=== PATIENT | male | born 1975 | race Caucasian/White ===

== ENCOUNTER 2019-07-11 10:37 | Emergency (ER) | payer BC, SELFPAY ==
[2019-07-11 10:41] VITALS: BP 120/51; PULSE 118; RESP 20; TEMP 36.6; O2SAT 100
--- NOTE | 2019-07-11 12:02 | ED.LOWEXIN ---
HPI - Extremity Injury (Lower) General Chief Complaint: Extremity Injury, Lower Stated Complaint: R KNEE INJURY Time Seen by Provider: 07/11/19 10:57 Source: patient Mode of arrival: ambulatory (on crutches) Limitations: no limitations History of Present Illness HPI Narrative: This is a 44-year-old male that presents the emergency department for right knee pain x2 months. Reports he had a previous meniscal repair on this knee a couple of years ago. Reports since he has had problems with pain in the knee. Reports the pain is just worsened over the last couple of months. No known injury or trauma to the knee. He has been using his crutches at home since yesterday and icing and elevating. Denies fever, erythema or warmth of the knee. Related Data Allergies Allergy/AdvReac Type Severity Reaction Status Date / Time No Known Allergies Allergy Verified 03/03/16 11:07 Review of Systems Review of Systems: Narrative: CONSTITUTIONAL: Denies fever SKIN: Denies rash MUSCULOSKELETAL: Reports joint pain, and myalgia. NEUROLOGIC: Denies numbness All systems reviewed & are unremarkable except as noted in HPI and below PMFSH Surgical History Surgical History (Updated 07/11/19 @ 12:09 by Fabiola Molina PA-C) Hx of arthroscopic knee surgery Family History Family History (Updated 01/08/16 @ 23:21 by DOCTOR UNKNOWN) Mother Patient's mother is in good health Father Patient's father is in good health Sibling Patient's sister is in good health Patient's brother is in good health Grandparent Carcinoma of colon Social History Social History Smoking status: Current every day smoker Alcohol intake: never Exam Narrative: Exam Narrative: GENERAL: Well-appearing, well-nourished, and in no acute distress. HEAD: Normocephalic, atraumatic. EYES: EOMI. CHEST: Clear to auscultation. No respiratory distress. No wheezes rales or rhonchi HEART: Regular rate and rhythm. No murmur heard. Normal peripheral pulses. EXTREMITIES: Normal range of motion. No edema, erythema or warmth of knee. Tender to palpation of the medial joint line SKIN: Warm, dry, no rash. NEURO: No focal deficits. Alert and oriented x3. PSYCH: Normal mood and affect Course Vital Signs Vital signs: Vital Signs Temperature 97.8 F 07/11/19 10:41 Pulse Rate 118 H 07/11/19 10:41 Respiratory Rate 20 07/11/19 10:41 Blood Pressure 120/51 L 07/11/19 10:41 Pulse Oximetry 100 07/11/19 10:41 Temperature 97.8 F 07/11/19 10:41 Pulse Rate 118 H 07/11/19 10:41 Respiratory Rate 07/11/19 10:41 Blood Pressure 120/51 L 07/11/19 10:41 Pulse Oximetry 100 07/11/19 10:41 MDM - Extremity Injury (Lower) MDM Narrative Medical decision making narrative: Patient presents emergency department for right knee pain. Refused knee x-ray. Reports a history of meniscal injury for which he had repaired years ago. No new injuries to the knee. Patient was placed in a knee immobilizer and has crutches. He was instructed to ice and elevate and follow-up with his orthopedic doctor. Patient was given warnings to return to the ER Critical Care Time Critical Care Time Critical Care Time: No Discharge Plan Discharge Clinical Impression: Acute pain of right knee Patient Disposition: Home, Self-Care Condition: Stable Instructions: Knee Sprain (ED) Additional Instructions: Return to the emergency department if you experience fever, redness and swelling of your leg, or any other symptoms that are concerning to you Wear knee immobilizer and use crutches. Ice and elevate. [id number] pain medication as needed Follow-up with your orthopedic doctor Follow-up/Referrals: Siddhartha Ortega MD [Primary Care Provider] - 3 Days Time of Disposition: 12:02
[2019-07-11 12:24] VITALS: BP 119/61; PULSE 87; RESP 16; O2SAT 97
== END 2019-07-11 12:25 | disposition home or self-care (01) ==
PROVIDERS: Emergency Provider Emergency Medicine; PCP Emergency Medicine
DX: M25.561 Pain in right knee (principal); F17.200 Nicotine dependence, unspecified, uncomplicated
CPT/HCPCS: 99283

== ENCOUNTER 2020-01-25 23:11 | Inpatient (IN) | payer BC, SELFPAY ==
--- NOTE | ~2020-01-25 | CT_ITS ---
EXAMINATION: CT brain wo con DATE: 01/26/2020 00:56 INDICATION: Altered mental status. TECHNIQUE: Computed tomography (CT) of the head was performed without intravenous contrast. The mA wa s adjusted according to patient size. Iterative reconstruction technique was employed. The dose-lengt h product was 681.00 mGy-cm. COMPARISON: Head CT 02/04/2014 FINDINGS: There is no intracranial hemorrhage, acute infarction, or abnormal intracranial mass lesion . The ventricles are normal in size. There is mild mucosal thickening in the ethmoid sinuses. The orb its are normal. The mastoid air cells are normal. IMPRESSION: 1. Normal brain. Reviewed, dictated and finalized at location A. IMPRESSION: 1. Normal brain.
--- NOTE | ~2020-01-25 | XR_ITS ---
EXAMINATION: XR forearm LT 2V DATE: 01/26/2020 13:49 INDICATION: Left elbow pain. TECHNIQUE: 2 views of left forearm were obtained. COMPARISON: None. FINDINGS: Bone alignment is normal. There is a nondisplaced fracture of the tip of the uncinate proce ss of the proximal ulna. Joint spaces are normal. There is an elbow joint effusion. IMPRESSION: 1. Nondisplaced fracture of the tip of the uncinate process of proximal ulna. 2. Elbow joint effusion. Reviewed, dictated and finalized at location A.
--- NOTE | ~2020-01-25 | XR_ITS ---
EXAMINATION: XR humerus LT DATE: 01/26/2020 13:50 INDICATION: Left elbow pain. TECHNIQUE: 2 views of left humerus were obtained. COMPARISON: None. FINDINGS: Bone alignment is normal. There is a nondisplaced fracture of the tip of the uncinate proce ss of proximal ulna. There is moderate osteoarthritis of acromioclavicular joint. IMPRESSION: 1. Nondisplaced fracture of the tip of the uncinate process of proximal ulna. 2. Moderate osteoarthritis of acromioclavicular joint. Reviewed, dictated and finalized at location A.
--- NOTE | ~2020-01-25 | XR_ITS ---
EXAMINATION: XR elbow LT min 3V DATE: 01/26/2020 13:50 INDICATION: Left elbow pain. TECHNIQUE: 4 views of left elbow were obtained. COMPARISON: None. FINDINGS: Bone alignment is normal. There is a nondisplaced fracture of the tip of the uncinate proce ss of proximal ulna. Joint spaces are normal. There is an elbow joint effusion. IMPRESSION: 1. Nondisplaced fracture of the tip in the uncinate process of proximal ulna. 2. Elbow joint effusion. Reviewed, dictated and finalized at location A.
--- NOTE | ~2020-01-25 | XR_ITS ---
EXAMINATION: XR chest 1V portable DATE: 01/26/2020 00:55 INDICATION: Transient alteration of awareness. TECHNIQUE: A single frontal view of the chest was obtained. COMPARISON: None. FINDINGS: The chest demonstrates clear lungs without pneumonia, pleural effusion, or pneumothorax. Th e heart size is normal. IMPRESSION: 1. No acute cardiopulmonary disease. Reviewed, dictated and finalized at location A.
--- NOTE | 2020-01-25 23:08 | ED.AMS ---
HPI - Altered Mental Status General Chief Complaint: Altered Mental Status Stated Complaint: AMS Source: EMS Mode of arrival: EMS Limitations: altered mental status and clinical condition History of Present Illness HPI narrative: Patient is a 45-year-old male who presents for evaluation of altered mental status. Patient was apparently found wandering streets and [place], shouting, yelling, for which the police department was called, patient became quite aggressive with police and had to be restrained. Because the patient was altered, EMS was then called to the scene and the patient was transported to our facility. Patient was noted to be diaphoretic and tachycardic. He is continuing to make the same statements repeatedly saying he thinks he is going to and please do not kill me. Patient is alert and oriented to person, not to place or time. Otherwise, the patient is quite diaphoretic, not cooperating with staff to lie on the bed. Additional history cannot be obtained. Related Data Allergies Allergy/AdvReac Type Severity Reaction Status Date / Time No Known Allergies Allergy Verified 03/03/16 11:07 Review of Systems Review of Systems: ROS unobtainable: Yes unobtainable due to mental status PMFSH Surgical History Surgical History Hx of arthroscopic knee surgery Family History Family History (Updated 01/08/16 @ 23:21 by DOCTOR UNKNOWN) Mother Patient's mother is in good health Father Patient's father is in good health Sibling Patient's sister is in good health Patient's brother is in good health Grandparent Carcinoma of colon Social History Social History Smoking status: Current every day smoker Alcohol intake: never Exam Narrative: Exam Narrative: GENERAL: Awake, diaphoretic HEAD: Normocephalic, atraumatic. EYES: 4+ PERRLA and EOMI. ENT: Nares clear, no rhinorrhea or epistaxis. Mucous membranes moist. NECK: Supple. CHEST: No respiratory distress, breathing even and non labored HEART: Tachycardic rate, sinus rhythm ABDOMEN:Non distended, non tender EXTREMITIES: Normal range of motion. No edema. SKIN: Warm, dry, no rash. NEURO:No focal deficits. Alert and oriented x1, moving all extremities spontaneously Course Vital Signs Vital signs: Vital Signs Temperature 37.3 C 01/25/20 23:13 Pulse Rate 142 H 01/25/20 23:13 Respiratory Rate 16 01/25/20 23:13 Blood Pressure 140/94 H 01/25/20 23:13 Pulse Oximetry 97 01/25/20 23:13 Temperature 37.3 C 01/25/20 23:13 Pulse Rate 100 01/26/20 00:35 Respiratory Rate 18 01/26/20 00:35 Blood Pressure 110/75 01/26/20 00:35 Pulse Oximetry 93 01/26/20 00:35 MDM - Altered Mental Status MDM Narrative Medical decision making narrative: Patient presented for evaluation of agitation, altered mental status after being found by police and then transported to our facility via EMS. At the time of assessment, patient is agitated, diaphoretic, tachycardic. He had an IV placed by EMS, and because the patient was not cooperative with medical staff for evaluation, he was given IV Haldol and Ativan with improvement in his agitation. Laboratory results notable for elevated CK of 5800, consistent with rhabdomyolysis, likely secondary to the substance abuse and agitation. Pt reporting amphetamine use to nurse. Patient's tachycardia and vital signs improved following administration of IV fluids. Patient will be admitted to hospitalist service. I also ordered him IV potassium replacement. Differential Diagnosis Differential diagnosis: Likely alcoholic intoxication, altered mental status, hypoglycemia, hyponatremia, subarachnoid hemorrhage and sepsis Lab Data Attestation: I reviewed the patient's lab results. Result diagrams: 01/25/20 23:35 01/25/20 23:35 Labs: Lab Results 01/25/20 01/25/2001/10
[2020-01-25 23:13] VITALS: BP 140/94; PULSE 142; RESP 16; TEMP 37.3; O2SAT 97
--- NOTE | 2020-01-25 23:16 | ECG_ITS ---
Measurements Intervals [place] Rate: 123 P: 66 NV: 151 QRS: 127 QRSD: 86 T: 59 QT: 414 QTc: 594 Interpretive Statements SINUS TACHYCARDIA RIGHT AXIS DEVIATION LOW VOLTAGE- LIMB LEADS BASELINE WANDER- V1-V3 ABNORMAL ECG Electronically Signed On 01-26-2020 7:57:02 CDT by Karan Bautista D.O.
[2020-01-25] MEDS: HALOPERIDOL LACTATE 5 MG/ML VIAL (23:30)
[2020-01-25] MEDS: SODIUM CHLORIDE 0.9% IV 2,000 ML 999 ML IV CONT (23:38)
[2020-01-25 23:41] LABS: Alveolar/Arterial O2 Gradient 39.3 mmHg; Device ROOM AIR; Fractional Inspired Oxygen 21 %; HCO3 ABG 22.1 mEq/l (22.0-26.0); Modified Allen's Test Unable to perform; Oxygen Content ABG 16.2 %vol (16.0-22.0); Oxygen Saturation ABG 93.8 % (95.0-100.0); PCO2 ABG 35.7 mmHg (35.0-45.0); PO2 ABG 67.7 mmHg (80.0-100.0); PO2 FiO2 Ratio Arterial Blood 3.22 %; Site Drawn RIGHT RADIAL; Total Hemoglobin 13.1 g/dL (12.0-18.0)
[2020-01-25 23:46] LABS: Basophils Percent Auto 0.4 % (0.2-1.2); Eosinophils Absolute Auto 0.1 K/mm3 (0-0.3); Eosinophils Percent Auto 1.3 % (0-4.4); Hematocrit 36.2 % (42.0-52.0); Hemoglobin 12.5 g/dL (14.0-18.0); Immature Granulocyte Absolute 0.03 K/mm3 (0.00-0.031); Immature Granulocyte Percent A 0.3 % (0-0.5); Lymphocytes Absolute Auto 1.96 K/mm3 (0.9-3.2); Lymphocytes Percent Auto 20.9 % (18.3-44.2); Mean Corpuscular HGB Conc 34.5 g/dl (32-36); Mean Corpuscular Hemoglobin 30.9 pg (26-34); Mean Corpuscular Volume 89.4 fl (80-100); Mean Platelet Volume 9.2 fl (7.4-10.4); Monocytes Absolute Auto 0.5 K/mm3 (0.1-0.6); Monocytes Percent Auto 5.3 % (2.6-8.5); Neutrophils Absolute Auto 6.7 K/mm3 (1.3-6.7); Neutrophils Percent Auto 71.8 % (45.5-73.1); Platelet Count Result 269 k/mm3 (150-375); Red Blood Count 4.05 M/mm3 (4.6-6.20); Red Cell Distribution Width 12.3 % (11.5-14.5); White Blood Count 9.4 K/mm3 (4.5-10.0)
[2020-01-25] MEDS: THIAMINE HCL 200 MG/2 ML VIAL 100 MG IV PUSH (23:50)
[2020-01-25] MEDS: MAGNESIUM SULF 2 GM/WATER 50ML 2 GM/50 ML BAG IVPB (23:50)
--- NOTE | 2020-01-25 23:57 | PC.NURSE ---
pt states he uses meth daily. pt was found wandering around by PD.
[2020-01-25 23:58] LABS: INR 1.1; Lactic Acid Reflex 2.8 mmol/L (0.7-2.1); Prothrombin Time 13.5 Seconds (11.1-14.7)
[2020-01-25 23:59] LABS: Acetaminophen < 10 ug/mL (10-30); Ammonia < 9 umol/L (9-30); Ethanol < 10 mg/dL (<10); Partial Thromboplastin Time 22.4 SECONDS (22.3-36.8); Salicylate < 1.0 mg/dL (2-20)
[2020-01-26] VITALS (11 sets, daily range): BP systolic 101–118; BP diastolic 61–75; PULSE 67–102; RESP 17–18; TEMP 36.7–36.8; O2SAT 93–100; BMI 22.0
[2020-01-26] MEDS: FOLIC ACID 1 MG/0.2 ML INJ IV PUSH
[2020-01-26 00:03] LABS: Alanine Aminotransferase 31 U/L (4-50); Albumin Level 4.2 g/dL (3.5-5.1); Alkaline Phosphatase 68 U/L (38-126); Anion Gap 12 mmol/L (8-16); Aspartate Amino Transferase 92 U/L (17-59); Bilirubin,Total 0.9 mg/dL (0.2-1.3); Blood Urea Nitrogen 10 mg/dL (9-20); Calcium 8.6 mg/dL (8.4-10.2); Carbon Dioxide 20 mmol/L (22-30); Chloride 107 mmol/L (98-107); Estimated CRCL calculation 66 ml/min; Estimated Glomerular Filt Rate > 60; Glucose 187 mg/dL (75-110); Sodium 139 mmol/L (137-145)
[2020-01-26 00:11] LABS: Troponin I < 0.012 ng/mL (0.000-0.034)
[2020-01-26 00:30] LABS: Thyroid Stimulating Hormone 0.648 uIU/mL (0.465-4.680)
[2020-01-26 00:33] LABS: Creatine Kinase 5846 U/L (55-170)
[2020-01-26 01:15] LABS: Folic Acid 13.1 ng/mL (2.76->20)
[2020-01-26 01:31] LABS: Glucose Point of Care 173 (65-105)
[2020-01-26 01:44] LABS: Add Urine Microscopic? NO; Appearance Urine Clear (Clear); Bilirubin Urine Negative (Negative); Blood Urine Negative (Negative); Color Urine Yellow (Yellow); Glucose Urine UA Negative (Negative); Ketones Urine Negative (Negative); Leukocyte Esterase Ur Negative LEU/UL (Negative); Nitrate Urine Negative (Negative); Protein Urine Negative (Negative); Specific Grav Ur 1.013 (1.001-1.035); Urobilinogen Urine Negative mg/dL (<2.0)
[2020-01-26] MEDS: SODIUM CHLORIDE 0.9% IV 1,000 ML 250 ML (02:02)
--- NOTE | 2020-01-26 02:03 | PM.IMHP ---
H&P: HPI History of Present Illness Date/Time: 01/26/20 02:03 Chief complaint: Rhabdomyolysis,Substance Abuse Narrative: This is a 45 year old male who was brought to the hospital by EMS secondary to altered mental status. He was apparently found wandering the streets of [place] shouting and yelling, for which the police department was called, patient became quite aggressive with police and had to be restrained. Because the patient was altered, EMS was then called to the scene and the patient was brought to the hospital. Patient was noted to be diaphoretic and tachycardic. He is continuing to make the same statements repeatedly saying he thinks he is going to and please do not kill me. The patient was treated with haldol and ativan in the ER secondary to his agitation. The patient was evaluated in the ER and found to be in acute rhabdomyolysis with an elevated lactic acid. The patient is known to abuse methamphetamine. UDS was obtained. On my encounter with the patient he is medicated and arouses to stimuli but cannot answer any of my questions reliably. Review of Systems Review of Systems: ROS unobtainable: Yes unobtainable due to mental status PMFSH Surgical History Surgical History Hx of arthroscopic knee surgery Family History Family History Mother Patient's mother is in good health Father Patient's father is in good health Sibling Patient's sister is in good health Patient's brother is in good health Grandparent Carcinoma of colon Social History Social History Smoking status: Current every day smoker Tobacco type: cigarettes Alcohol intake: current Substance use: current Substance use type: amphetamines and methamphetamine Last use: 01/25/2020 Gender identity (if verbalized by the patient): Male Spiritual care concerns: No Comments Past Medical/surgical/social/family medical histories are not obtainable secondary to the patient's mental status. Meds Home Medications and Allergies Home Medications Medication Instructions Recorded Confirmed Type acetaminophen 500 mg PO Q6H PRN #30 cap 01/26/20 Rx ibuprofen 400 mg PO TID PRN 10 Days #30 01/26/20 Rx tablet Allergies Allergy/AdvReac Type Severity Reaction Status Date / Time No Known Allergies Allergy Verified 03/03/16 11:07 Vital Signs Vital Signs - 24 hr 01/25/20 23:13 01/26/20 00:21 01/26/20 00:35 Temperature 37.3 C Pulse Rate 142 H 102 H 100 Respiratory Rate 16 17 18 Blood Pressure 140/94 H 110/75 Pulse Oximetry 97 93 93 Exam Const: General: patient obtunded Nutritional Appearance: thin Orientation/consciousness: patient obtunded HENMT: Head: normal to inspection General nose exam: Normal external nose present Face and sinus: normal facial exam Eyes: Pupils: Equal, round and reactive pupils present Neck: Neck: supple and no JVD Thyroid: thyroid normal Lymphatic: lymphadenopathy not noted Resp: Effort & Inspection: normal respiratory effort Auscultation: clear to auscultation bilaterally Cardio: Rate: regular rate Rhythm: regular rhythm Heart sounds: no murmurs GI: Inspection: normal to inspection Auscultation: normal bowel sounds Skin: General skin exam: normal color and no rashes or lesions noted Neuro: Cranial nerves: Yes Equal, round and reactive pupils present Extrem: General: normal to inspection and no edema H&P: Results Labs Labs: Short CBC 01/25/20 Range/Units 23:35 WBC 9.4 (4.5-10.0) K/mm3 Hgb 12.5 L (14.0-18.0) g/dL Hct 36.2 L (42.0-52.0) % Plt Count 269 (150-375) k/mm3 BMP 01/25/20 23:35 Sodium 139 Potassium 3.0 L Chloride 107 Carbon Dioxide 20 L BUN 10 Creatinine 0.80 Glucose 187 H Calcium 8.6 Cardiac Enzymes 01/25/20 Range/Units 23:35
[2020-01-26 02:09] LABS: Barbiturate Screen Urine Negative (Negative); Benzodiazepines Screen Urine Negative (Negative)
[2020-01-26 02:14] LABS: Cannabinoid Screen Urine Negative (Negative); Cocaine Screen Urine Negative (Negative); Methadone Screen Urine Negative (Negative); Opiate Screen Urine Negative (Negative); Phencyclidine Screen Urine Negative (Negative)
--- NOTE | 2020-01-26 02:16 | PC.NURSE ---
NS 250mL/hr started at 02:02. Unable to scan medication into MAR or override medication administration.
[2020-01-26 02:42] LABS: Amphetamine Screen Urine Positive (Negative)
[2020-01-26 02:45] LABS: Reflex Lactic Acid Yes or No Add Lactic
[2020-01-26 03:21] LABS: Lactic Acid 0.6 mmol/L (0.7-2.1)
--- NOTE | 2020-01-26 03:22 | PC.NURSE ---
This patient, King Banks, was admitted to Medical Room 340-01. Patient/family oriented to hospital policies and general routines including ID bracelet, bed and alarms, visiting hours, pain management, procedures, bathroom and other care routines, personal items, smoking policy, room service/diet, and visiting hours. Valuables list has been completed. Information on how to activate the Rapid Response Team has been discussed. Patient/Family are encouraged to report perceived risks to care and to ask questions if they do not understand what they are told or what they should do.
[2020-01-26] MEDS: SODIUM CHLORIDE 0.9% IV 1,000 ML 250 ML IV CONT ×4 (03:48→11:41)
[2020-01-26 06:30] LABS: Basophils Absolute Auto 0.1 K/mm3 (0.0-0.1); Basophils Percent Auto 0.5 % (0.2-1.2); Eosinophils Absolute Auto 0.1 K/mm3 (0-0.3); Eosinophils Percent Auto 1.2 % (0-4.4); Hematocrit 33.5 % (42.0-52.0); Hemoglobin 11.4 g/dL (14.0-18.0); Immature Granulocyte Absolute 0.05 K/mm3 (0.00-0.031); Immature Granulocyte Percent A 0.5 % (0-0.5); Lymphocytes Absolute Auto 2.84 K/mm3 (0.9-3.2); Lymphocytes Percent Auto 26.4 % (18.3-44.2); Mean Corpuscular Hemoglobin 31.1 pg (26-34); Mean Corpuscular Volume 91.5 fl (80-100); Mean Platelet Volume 9.6 fl (7.4-10.4); Monocytes Absolute Auto 0.7 K/mm3 (0.1-0.6); Monocytes Percent Auto 6.1 % (2.6-8.5); Neutrophils Percent Auto 65.3 % (45.5-73.1); Platelet Count Result 245 k/mm3 (150-375); Red Blood Count 3.66 M/mm3 (4.6-6.20); Red Cell Distribution Width 12.4 % (11.5-14.5); White Blood Count 10.7 K/mm3 (4.5-10.0)
[2020-01-26 06:47] LABS: Anion Gap 2 mmol/L (8-16); Blood Urea Nitrogen 9 mg/dL (9-20); Calcium 7.7 mg/dL (8.4-10.2); Carbon Dioxide 23 mmol/L (22-30); Chloride 113 mmol/L (98-107); Estimated CRCL calculation 99 ml/min; Estimated Glomerular Filt Rate > 60; Glucose 105 mg/dL (75-110); Sodium 138 mmol/L (137-145)
[2020-01-26 07:05] LABS: Hemoglobin A1C 5.3 % (<5.7)
[2020-01-26 07:46] LABS: Creatine Kinase 3955 U/L (55-170)
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
--- NOTE | 2020-01-26 12:00 | PC.NURSE ---
Addendum entered by Sarahi Sanderson RN 01/26/20 14:14: Notified at 1400. Original Note: Patient left against medical advice. Po Russell notified of the same.
[2020-01-26] MEDS: ACETAMINOPHEN 325 MG TABLET 650 MG PO (13:21)
--- NOTE | 2020-01-26 15:17 | PC.NURSE ---
Pt said, I am getting up out of here. I have things to do. Pt was educated about the risks of kidney damage from his elevated CK level that he was admitted for. Pt was also encouraged to stay & wait for the x-ray results. Pt says he is arm is f. Pt unable to move his left arm without pain. He told Nurse Sarahi & me that he had called his mother to pick him up and he was leaving. Pt was wheeled to the front entrance in a wheelchair. Pt jumped out of the wheelchair and said, I got ya! Pt said he was going to walk to his mom's. Pt was observed ambulating through the [employer] parking lot.
== END 2020-01-26 14:50 | disposition left against medical advice (07) | DRG 92 ==
LOC: ANHED 01-26 02:02 → ANH3MED 01-26 02:22
PROVIDERS: Admitting Provider Family Medicine; Emergency Provider Emergency Medicine; PCP Emergency Medicine; Visit Provider Family Medicine
DX: G92 Toxic encephalopathy (principal); M62.82 Rhabdomyolysis; T43.625A Adverse effect of amphetamines, initial encounter; E87.6 Hypokalemia; R79.89 Other specified abnormal findings of blood chemistry; R73.09 Other abnormal glucose; M25.522 Pain in left elbow; F15.10 Other stimulant abuse, uncomplicated; F17.210 Nicotine dependence, cigarettes, uncomplicated
CPT/HCPCS: 36415; 36600; 70450; 71045; 73060; 73080; 73090; 80048; 80053; 80307; 81003; 82140; 82550; 82746; 82805; 82948; 83036; 83605; 84443; 84484; 85025; 85610; 85730; 87040; 93005; 96365; 96367; 96375; 99285; A9270; J1630; J2060; J3411; J3475; J3480; J7030

== ENCOUNTER 2020-01-26 20:33 | Emergency (ER) | payer BC, SELFPAY ==
[2020-01-26 20:35] VITALS: BP 148/84; PULSE 74; RESP 18; TEMP 37.1; O2SAT 100
--- NOTE | 2020-01-26 20:46 | ED.UPPEXIN ---
HPI - Extremity Injury (Upper) General Chief Complaint: Extremity Injury, Upper Stated Complaint: left arm injury Time Seen by Provider: 01/26/20 20:46 Source: patient Mode of arrival: ambulatory Limitations: no limitations History of Present Illness HPI narrative: Patient is a 45-year-old male who presented to the emergency department for evaluation of elbow pain. Patient states that he had x-rays done this morning and then left the hospital AGAINST MEDICAL ADVICE after I admitted him this morning for rhabdomyolysis and methamphetamine use. Patient states he left before he received the results of his x-rays. He is right-hand dominant. He reports some swelling at the left elbow, denies numbness. Related Data Allergies Allergy/AdvReac Type Severity Reaction Status Date / Time No Known Allergies Allergy Verified 03/03/16 11:07 Review of Systems Review of Systems: Narrative: CONSTITUTIONAL: Denies fever CARDIOVASCULAR: Denies chest pain RESPIRATORY: Denies cough or dyspnea. GASTROINTESTINAL: Denies abdominal pain SKIN: Denies rash MUSCULOSKELETAL: Denies back pain NEUROLOGIC: Denies headache [facility] Social History Social History Smoking status: Current every day smoker Tobacco type: cigarettes Alcohol intake: current Substance use: current Substance use type: amphetamines and methamphetamine Last use: 01/25/2020 Gender identity (if verbalized by the patient): Male Spiritual care concerns: No Exam Narrative: Exam Narrative: GENERAL: Awake, alert, conversant HEAD: Normocephalic, atraumatic. EYES: PERRLA and EOMI. ENT: Nares clear, no rhinorrhea or epistaxis. Mucous membranes moist.Abrasion to nasal bridge. NECK: Supple. CHEST: No respiratory distress, breathing even and non labored HEART: Regular rate, sinus rhythm ABDOMEN:Non distended, non tender EXTREMITIES: Normal range of motion. Pain with flexion at the left elbow. There is edema and mild ecchymosis at the left elbow. Patient is denying hand pain. Intact sensation median, ulnar, radial nerve. Radial pulse 2+. SKIN: Warm, dry, no rash. NEURO:No focal deficits. Alert and oriented x3 Course Vital Signs Vital signs: Vital Signs Temperature 37.1 C 01/26/20 20:35 Pulse Rate 74 01/26/20 20:35 Respiratory Rate 18 01/26/20 20:35 Blood Pressure 148/84 H 01/26/20 20:35 Pulse Oximetry 100 01/26/20 20:35 Temperature 37.1 C 01/26/20 20:35 Pulse Rate 74 01/26/20 20:35 Respiratory Rate 18 01/26/20 20:35 Blood Pressure 148/84 H 01/26/20 20:35 Pulse Oximetry 100 01/26/20 20:35 Procedures Orthopedic Splinting/Casting Injury #1: Splinting/Casting Date: 01/26/20 Splinting/Casting Time: 21:04 Side: left Upper Extremity Injury Location: elbow Upper Extremity Immobilizer: posterior splint (long arm) Pre-Procedure Neuro Vascular Exam: normal Post-Procedure Neuro Vascular Exam: normal MDM - Extremity Injury (Upper) MDM Narrative Medical decision making narrative: Patient presented for evaluation of left elbow pain, patient had imaging done this morning while he was still inpatient in our facility for rhabdomyolysis in the setting of methamphetamine abuse and encephalopathy. Patient states he left AGAINST MEDICAL ADVICE prior to receiving the results of his imaging reports. Patient with fracture of the uncinate process of the ulna. No dislocation. Spoke with Dr. Reynaga in regards to follow-up for this patient, a posterior long-arm splint was placed in the emergency department patient was discharged home. Differential Diagnosis Differential diagnosis: Likely fracture of hand, dislocation of shoulder and fracture of clavicle Discharge Plan Discharge Clinical Impression: Fracture, ulna, proximal Qualifiers: Encounter type: initial encounter Fracture type: closed Fracture morphology: other fracture Laterality: left Qualified Code
[2020-01-26 21:47] VITALS: BP 153/74; PULSE 78; RESP 16; TEMP 36.8; O2SAT 99
== END 2020-01-26 21:49 | disposition home or self-care (01) ==
LOC: ANHED 21:07
PROVIDERS: Emergency Provider Emergency Medicine; PCP Emergency Medicine
DX: S52.092A Other fracture of upper end of left ulna, initial encounter for closed fracture (principal); F17.210 Nicotine dependence, cigarettes, uncomplicated; X58.XXXA Exposure to other specified factors, initial encounter
CPT/HCPCS: 29105; 99284; A4565

== ENCOUNTER 2020-01-28 10:30 | Emergency (ER) | payer BC, SELFPAY ==
[2020-01-28 10:52] VITALS: BP 154/76; PULSE 76; RESP 18; TEMP 37.1; O2SAT 100
--- NOTE | 2020-01-28 11:12 | PC.NURSE ---
Pt not in waiting room
--- NOTE | 2020-01-28 11:31 | PC.NURSE ---
Pt not in waiting room
== END 2020-01-28 11:31 | disposition left against medical advice (07) ==
PROVIDERS: PCP Emergency Medicine
DX: Z53.21 Procedure and treatment not carried out due to patient leaving prior to being seen by health care provider (principal)
CPT/HCPCS: 99199

== ENCOUNTER 2024-12-31 09:13 | Emergency (ER) | payer OTHER, SELFPAY ==
[2024-12-31 09:16] VITALS: BP 151/85; PULSE 49; RESP 16; TEMP 36.6; O2SAT 100
--- OUTSIDE RECORDS SUMMARY | 2024-12-31 09:21 | XMS_ITS | Referral Summary ---
Author Organization [facility] Address [address] [place] [id number] Care Team Providers Care Welder First Class Name Role Phone Unknown, Notinfile Primary Care Provider Unavail able Allergies No known active allergies Medications HYDROcodone-acet aminophen (NORCO) 10-325 mg per tabletIndication s:Pain TAKE 1 TABLET BY MOUTH EVERY 4 TO 6 HOURS NEEDED FOR PAIN 0 01/24/[address] (VOLTAREN) 75 mg EC tablet Take 1 tablet (75 mg total) by mouth 2 (two) times a day 60 tablet 2 12/23/2019 Active Active Problems Problem Noted Date Diagnosed Date Chronic pain of right knee 12/23/2019 Overview (12/23/2019): Post meniscus repair Immunizations Immunization Administration Dates Next Due Influenza, Unspecified 12/23/2019(Deferred: Karlene ent Refused) Social History Tobacco Use Types Packs/Day Years Used Date Smoking Tobacco: Every Day Cigarettes Smokeless Tobacco: Never PHQ-2 Answer Date Recorded PHQ-2 Total Score (If total score is 3 or more points, staff should administer the PHQ-9) 0 12/23/2019 Personal Safety Answer Date Recorded Getting School Help Needed Not on file 08/25 Sex and Gender Information Value Date Recorded Sex Assigned at Not on file 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 Gender Identity Not on file Sexual Orientation Not on file Last Filed Vital Signs Vital Sign Reading Time Taken Comments Blood Pressure 116/70 12/23/2019 3:47 PM CDT Pulse 83 12/23/2019 3:47 PM CDT Temperature 36.5 C (97.7 F) 09/11/2016 7:41 AM CDT Respiratory Rate 16 12/23/2019 3:47 PM CDT Oxygen Saturation 96% 12/23/2019 3:47 PM CDT Inhaled Oxygen Concentration - - Weight 69.4 kg (153 lb) 12/23/2019 3:47 PM CDT Height 165.1 cm (5' 5) 12/23/2019 3:47 PM CDT Body Mass Index 25.46 12/23/2019 3:47 PM CDT Plan of Treatment Not on file Insurance [employer] Care Teams Welder First Class Relationship Specialty Start Date End Date Unknown, Notinfile PCP - General 04/18/22
--- OUTSIDE RECORDS SUMMARY | 2024-12-31 09:21 | XMS_ITS | Encounter Summary ---
Author Organization [facility] Care Team Providers Care Baker Second Name Role Phone Siddhartha Ortega MD Primary Care Provider [phone] Silvino Miranda MD Primary Care Provider [phone] Unknown, Notinfile Primary Care Provider Unavail able Encounter Details Date Type Department Care Team (Latest Contact Info) Description 07/01/2016 Orders Only [facility] CLIN[facility] ProviderRosa MD [address] [place] [address] Social History Tobacco Use Types Packs/Day Years Used Date Smoking Tobacco: Never Assessed Sex and Gender Information Value Date Recorded Sex Assigned at Not on file Legal Sex Male 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 us Historical Provider Final Res ult documented in this encounter Visit Diagnoses Not on filedocumented in this encounter Additional Health Concerns Infection Onset Date Last Indicated Resolved Time MRSA Comment:UPPER THIGH/LOWER BUTTOCK AREA 2009- I&D. 07/01/2016 06/29/2016 01/27/2021 5:00 AM C DT documented as of this encounter Care Teams Baker Second Relationship Specialty Start Date End Date Siddhartha Ortega MD [address] [place] [address] PCP - General Family Medicine 01/29/18 12/16/19 Silvino Miranda MD [address] [facility] [address] [place] [address] PCP - General Internal Medicine 12/17/19 04/17/22 Unknown, Notinfile PCP - General 04/18/22 documented as of this encounter
--- OUTSIDE RECORDS SUMMARY | 2024-12-31 09:21 | XMS_ITS | Patient Health Record ---
Author Organization [email or web address] [facility] Address [address] [facility] [address] [place] [address] Care Team Providers Care Pattern Changer And Repairer Name Role Phone Bladimir Johnson Unavailable [phone] Reason For Referral No Information Plan Of Treatment No Information Insurance Providers Payer Name Payer Address Payer Phone Subscriber Number Group Number Insured Name Patient Relationship to Insured Coverage Start Date Coverage End Date [facility] [address] [place] [address] [id number] NELA CULLEN Self - patient is the insured
--- OUTSIDE RECORDS SUMMARY | 2024-12-31 09:21 | XMS_ITS | Patient Health Record ---
Author Organization [facility] Address [address] [place] [address] Care Team Providers Care Bending Machine Operator Name Role Phone Malik Florez MD Primary Care Provider Adama Peralta Jr Unavailable [phone] REASON FOR REFERRAL No Information MEDICATIONS Medication SIG (Take, Route, Fr equency, Duration) Notes Start Date End Date Status Ibuprofen 800 MG 1 tablet Orally Thre e times a day for 30 day(s) 04/23/2020 Active predniSONE 10 MG as directed Orally 3 tabs PO x3 days; 2 tabs PO x3 days; 1 tab PO x 3 days for 9 days 04/23/2020 Active Ibuprofen 800 MG 1 tablet with food o r milk as needed Orally Three times a day for 30 days Active SOCIAL HISTORY Tobacco Use: Social History Observation Description Date Details (start date - stop date) Current Smoker NA - NA Sex Assigned At : Social History Observation Description Sex Assigned At Unknown Tobacco Use/Smoking Question Answer Notes Are you a current smoker When did you start smoking? 20 How often do you smoke cigarettes? every day How many cigarettes a day do you smoke? 11-20 PROBLEMS Problem Type ICD Code Onset Dates Problem Status W/U Status Risk SNOMED Code Notes Problem Other chronic pain (G89.29) Active confirmed 50727300 Problem Pain in right knee (M25.561) Active confirmed 45280244 Problem Primary osteoarthritis of right knee (M17.11) Active confirmed [id number] PLAN OF TREATMENT No Information Insurance Providers Payer Name Payer Address Payer Phone Subscriber Number Group Number Insured Name Patient Relationship to Insured Coverage Start Date Coverage End Date [employer] LOC[place] [address] [place] [address] [id number] King Banks Self - patient is the insured 0 MEDICAL (GENERAL) HISTORY Surgical History Surgery Date(Month/Year) lt hand 2012 right knee 2017
--- OUTSIDE RECORDS SUMMARY | 2024-12-31 09:21 | XMS_ITS | Encounter Summary ---
Author Organization [facility] Facility Care Team Providers Care Podiatrist Orthopedic Name Role Phone Siddhartha Ortega MD Primary Care Provider [phone] Silvino Miranda MD Primary Care Provider [phone] Unknown, Notinfile Primary Care Provider Unavail able Encounter Details Date Type Department Care Team (Latest Contact Info) Description 07/04/2016 Orders Only [facility] CLINCON[facility] ProviderRosa MD [address] [place] [address] Social History Tobacco Use Types Packs/Day Years Used Date Smoking Tobacco: Never Assessed Sex and Gender Information Value Date Recorded Sex Assigned at Not on file Legal Sex Male 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 us Historical Provider Final Res ult documented in this encounter Visit Diagnoses Not on filedocumented in this encounter Additional Health Concerns Infection Onset Date Last Indicated Resolved Time MRSA Comment:UPPER THIGH/LOWER BUTTOCK AREA 2009- I&D. 07/01/2016 06/29/2016 01/27/2021 5:00 AM C DT documented as of this encounter Care Teams Podiatrist Orthopedic Relationship Specialty Start Date End Date Siddhartha Ortega MD [address] [place] [address] PCP - General Family Medicine 01/29/18 12/16/19 Silvino Miranda MD [address] [facility] [address] [place] [address] PCP - General Internal Medicine 12/17/19 04/17/22 Unknown, Notinfile PCP - General 04/18/22 documented as of this encounter
--- OUTSIDE RECORDS SUMMARY | 2024-12-31 09:21 | XMS_ITS | Clinical Summary ---
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
[2024-12-31 09:48] VITALS: BP 125/83; PULSE 51; RESP 15; O2SAT 98
--- OUTSIDE RECORDS SUMMARY | 2024-12-31 09:59 | XMS_ITS | Referral Summary ---
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
--- OUTSIDE RECORDS SUMMARY | 2024-12-31 09:59 | XMS_ITS | Clinical Summary ---
Author Organization [facility] Address [address] [place] [address] Care Team Providers Care Nanny Babysitter Name Role Phone New Referring, Provider Primary Care Provider Un available Allergies No known active allergies Social History Tobacco Use Types Packs/Day Years Used Date Smoking Tobacco: Every Day Cigarettes 1 15 Smokeless Tobacco: Never Tobacco Cessation:Ready to Q uit: No; Counseling Given: Yes Alcohol Use Standard Drinks/Week Comments Not Currently 0 (1 standard drink = 0.6 oz pur e alcohol) Sex and Gender Information Value Date Recorded Sex Assigned at Not on file Legal Sex Male 7:26 PM CDT Gender Identity Not on file Sexual Orientation Not on file Last Filed Vital Signs Vital Sign Reading Time Taken Comments Blood Pressure 109/67 01/25/2020 3:02 AM CDT Pulse 84 01/25/2020 3:02 AM CDT Temperature 36.8 C (98.2 F) 01/24/2020 11:06 PM CDT Respiratory Rate 16 01/25/2020 4:30 AM CDT Oxygen Saturation 98% 01/25/2020 4:30 AM CDT Inhaled Oxygen Concentration - - Weight 61.2 kg (134 lb 14.7 oz) 020 11:06 PM CDT Height 165.1 cm (5' 5) 01/24/2020 11:0 6 PM CDT Body Mass Index 22.45 01/24/2020 11:06 PM CDT Plan of Treatment Health Maintenance Due Date Last Done Comments Colorectal Cancer Screening Colonoscopy (10 Years) 1977 Annual Physical 01/14/1980 Hepatitis C 1995 DTaP, Tdap and Td Vaccines ( 1 - Tdap) 01/14/1996 Hepatitis B Vaccines (1 of 3 - 19+ 3-dose series) 01/14/1996 COVID-19 Vaccine (2023-2 5 season) 2024 Meningococcal B Vaccine Aged Out No l onger eligible based on patient's age to complete this topic Meningococcal Vaccine Aged Out No waqas marcus eligible based on patient's age to complete this topic Pneumococcal Vaccine: Pediat rics (0 to 5 Years) and At-Risk Patients (6 to 49 Years) Aged Out No longer eligible b ased on patient's age to complete this topic RSV Immunizations Under 20 Months Aged Out No longer eligible based on patient's age to complete this topic Care Teams Nanny Babysitter Relationship Specialty Start Date End Date New Referring, Provider PCP - General UNKNOWN PHYSICIAN SPECIALTY 01/24/20
--- OUTSIDE RECORDS SUMMARY | 2024-12-31 09:59 | XMS_ITS | Encounter Summary ---
Author Organization [facility] Facility Care Team Providers Care Extruding Press Operator Name Role Phone Siddhartha Ortega MD Primary Care Provider [phone] Silvino Miranda MD Primary Care Provider [phone] Unknown, Notinfile Primary Care Provider Unavail able Encounter Details Date Type Department Care Team (Latest Contact Info) Description 07/01/2016 Orders Only [facility] CLINCON[facility] ProviderRosa MD [address] [place] [address] Social History Tobacco Use Types Packs/Day Years Used Date Smoking Tobacco: Never Assessed Sex and Gender Information Value Date Recorded Sex Assigned at Not on file Legal Sex Male 9:10 AM BOX CHIPPER Gender Identity Not on file Sexual Orientation Not on file documented as of this encounter Plan of Treatment Not on file documented as of this encounter Procedures Procedure Name Priority Date/Time Associated Diagnosis Comments PROCEDURE - RESULT 07/01/2016 12 :00 AM BOX CHIPPER documented in this encounter Results * PROCEDURE - RESULT (07/01/2016 12:00 AM BOX CHIPPER) Narrative 07/01/2016 12:00 AM BOX CHIPPER Ordered by an unspecified provider. us Historical Provider Final Res ult documented in this encounter Visit Diagnoses Not on filedocumented in this encounter Additional Health Concerns Infection Onset Date Last Indicated Resolved Time MRSA Comment:UPPER THIGH/LOWER BUTTOCK AREA 2009- I&D. 07/01/2016 06/29/2016 01/27/2021 5:00 AM C DT documented as of this encounter Care Teams Extruding Press Operator Relationship Specialty Start Date End Date Siddhartha Ortega MD [address] [place] [address] PCP - General Family Medicine 01/29/18 12/16/19 Silvino Miranda MD [address] [facility] [address] [place] [address] PCP - General Internal Medicine 12/17/19 04/17/22 Unknown, Notinfile PCP - General 04/18/22 documented as of this encounter
--- OUTSIDE RECORDS SUMMARY | 2024-12-31 09:59 | XMS_ITS | Encounter Summary ---
Author Organization [facility] Facility Care Team Providers Care Statistical Modeler Name Role Phone Siddhartha Ortega MD Primary Care Provider [phone] Silvino Miranda MD Primary Care Provider [phone] Unknown, Notinfile Primary Care Provider Unavail able Encounter Details Date Type Department Care Team (Latest Contact Info) Description 07/04/2016 Orders Only [facility] CLINCON[facility] ProviderRosa MD [address] [place] [address] Social History Tobacco Use Types Packs/Day Years Used Date Smoking Tobacco: Never Assessed Sex and Gender Information Value Date Recorded Sex Assigned at Not on file Legal Sex Male 9:10 AM TOOLING ENGINEER Gender Identity Not on file Sexual Orientation Not on file documented as of this encounter Plan of Treatment Not on file documented as of this encounter Procedures Procedure Name Priority Date/Time Associated Diagnosis Comments PROCEDURE - RESULT 07/04/2016 12 :00 AM TOOLING ENGINEER documented in this encounter Results * PROCEDURE - RESULT (07/04/2016 12:00 AM TOOLING ENGINEER) Narrative 07/04/2016 12:00 AM TOOLING ENGINEER Ordered by an unspecified provider. us Historical Provider Final Res ult documented in this encounter Visit Diagnoses Not on filedocumented in this encounter Additional Health Concerns Infection Onset Date Last Indicated Resolved Time MRSA Comment:UPPER THIGH/LOWER BUTTOCK AREA 2009- I&D. 07/01/2016 06/29/2016 01/27/2021 5:00 AM C DT documented as of this encounter Care Teams Statistical Modeler Relationship Specialty Start Date End Date Siddhartha Ortega MD [address] [place] [address] PCP - General Family Medicine 01/29/18 12/16/19 Silvino Miranda MD [address] [facility] [address] [place] [address] PCP - General Internal Medicine 12/17/19 04/17/22 Unknown, Notinfile PCP - General 04/18/22 documented as of this encounter
--- OUTSIDE RECORDS SUMMARY | 2024-12-31 09:59 | XMS_ITS | Clinical Summary ---
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
--- NOTE | 2024-12-31 11:17 | PC.NURSE ---
Report given to Debra Ríos RN, all questions answered
[2024-12-31 11:24] VITALS: BP 125/82; PULSE 46; RESP 16; O2SAT 96
--- NOTE | 2024-12-31 11:41 | ED_ITS ---
HPI - Eye Problem General Chief complaint: Eye Problems Stated complaint: FB in left eye Time Seen by Provider: 12/31/24 09:44 Source: patient Mode of arrival: ambulatory Limitations: no limitations History of Present Illness HPI Narrative: Patient presents with concern for foreign body in his left eye. He believes that a piece of rock went in his eye. This incident occurred 10 days ago. He has not been seen for this issue yet and instead past week and a half has been dealing blurred vision and pain as well as increased tear production. States it feels like there is a foreign body stuck in there, like a scratching. Does not know if it is worse or better with blinking. He does not wear glasses or contacts. 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 Today it was causing issues will he was at work but he decided to seen. Denies any pus or other discharge. It does seem sensitive to light. Related Data Allergies Allergy/AdvReac Type Severity Reaction Status Date / Time No Known Allergies Allergy Verified 12/31/24 09:22 [facility] Past Medical History Medical History Rhabdomyolysis Surgical History Surgical History Hx of arthroscopic knee surgery Family History Family History Mother Patient's mother is in good health Father Patient's father is in good health Sibling Patient's sister is in good health Patient's brother is in good health Grandparent Carcinoma of colon Social History Social History Smoking status: Current every day smoker Tobacco type: cigarettes Alcohol intake: current Substance use: current Substance use type: amphetamines and methamphetamine Last use: 01/25/2020 Occupation/Education: occupation Gender identity (if verbalized by the patient): Male Spiritual care concerns: No Exam Narrative: GENERAL: Well-appearing, well-nourished, and in no acute distress. HEAD: Normocephalic, atraumatic. EYES: Left eye injected, right eye not, neither eye icteric Visual acuity - see nursing notes PERRL Extraocular motility and alignment normal EOMI intact without entrapment/limitation Patient has an obvious small sub-1mm foreign body in his cornea overlying the iris/pupil. Increased lacrimation but otherwise without matting/crusting/other discharge Fluroescien exam/Mendy test normal ENT: No epistaxis. Gross auditory acuity intact. NECK: Supple. No meningismus. CHEST: Speaking in full sentences. No respiratory distress. HEART: Bradycardic rate and rhythm. . ABDOMEN: Soft, nondistended. EXTREMITIES: Normal range of motion. No lower extremity edema. SKIN: Warm, dry, no rash. NEURO: No focal deficits. Alert and oriented. Answering questions. Following commands. Normal speech without aphasia or dysarthria. PSYCH: Normal mood and affect. Course Vital Signs Vital signs: Vital Signs Temperature 97.8 F 12/31/24 09:16 Pulse Rate 49 L 12/31/24 09:16 Respiratory Rate 16 12/31/24 09:16 Blood Pressure 151/85 H 12/31/24 09:16 Pulse Oximetry 100 12/31/24 09:16 Oxygen Delivery Room Air 12/31/24 09:16 Temperature 97.8 F 12/31/24 09:16 Pulse Rate 62 12/31/24 13:03 Respiratory Rate 16 12/31/24 13:03 Blood Pressure 128/93 H 12/31/24 13:03 Pulse Oximetry 100 12/31/24 13:03 Oxygen Delivery Room Air 12/31/24 09:16 MDM - Eye Problem MDM Narrative Medical decision making narrative: Patient presents with concern for foreign body in his left eye. He states 10 days ago he felt something land in it. Believes it is a small piece of rock or metal. Has not yet been seen for this but it has not been getting better. In the emergency department he is afebrile with vital signs notable for bradycardia as well as hypertension. Hypertension resolved on reassessment without interval intervention but the bradycardia persists. Tetracaine drops inserted into left eye and multiple attempts at removal of foreign body overlying the pupil at the surface of the cornea are attempted with a 25 gauge needle. Unfortunately, although contact can be made with the sided the object, it is not readily removed despite multiple attempts. Called [facility]. No appointments available at the [place] location however appointment was made for 2:[address] Diamond at the [place] location; confirmed address. Montessori Lead Teacher was provided with patient's insurance information. They request that he arrives at 2:30 a.m.. Patient is informed of this and verifies understanding and is in agreement. He was provided another 2 gtts of tetracaine in the eye and I ordered erythromycin ointment both as a prescription and a 1 time dose to be given while in the emergency department for discharge. Otherwise stable. Differential Diagnosis Differential diagnosis: Likely corneal abrasion, conjunctivitis, acute iritis, hyphema, periorbital cellulitis, subconjunctival hemorrhage, corneal ulcer, ruptured globe and other (foreign body) Discharge Plan Discharge Clinical Impression: Foreign body of left eye Patient Disposition: Home Condition: Stable Instructions: Antibiotic Form, Eye Foreign Body (ED) Additional Instructions: As we discussed, multiple attempts of extraction of the foreign body in her left eye with a 25 gauge needle were unfortunately unsuccessful, possibly due to the duration of the presence of this foreign body. 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 See below. Please present as directed. Patient Language: Croatian Prescriptions: New erythromycin 5 mg/gram (0.5 %) ointment 1 applic LEFT EYE TID Qty: 3.5 0RF No Action ibuprofen 400 mg tablet 400 mg PO TID PRN (Reason: fever or pain) 10 Days Qty: 30 0RF acetaminophen 500 mg capsule 500 mg PO Q6H PRN (Reason: fever or pain) Qty: 30 0RF Follow-up/Referrals: [facility] [place] [Other] (Appointment made for 2:[address] Diamond - arrive at 2:30pm) Siddhartha Ortega MD [Primary Care Provider] - Stand Alone Forms: Work/School Release IP Time of Disposition: 12:31
[2024-12-31 13:03] VITALS: BP 128/93; PULSE 62; RESP 16; O2SAT 100
== END 2024-12-31 13:04 | disposition home or self-care (01) ==
PROVIDERS: Emergency Provider Student in an Organized Health Care Education/Training Program; PCP Emergency Medicine
DX: T15.02XA Foreign body in cornea, left eye, initial encounter (principal); W44.F9XA Other object of natural or organic material, entering into or through a natural orifice, initial encounter; F17.210 Nicotine dependence, cigarettes, uncomplicated
CPT/HCPCS: 99283